=== PATIENT | female | born 1940 | race Caucasian/White ===

== ENCOUNTER → 2023-08-31 07:53 | Outpatient (REF) | payer OTHER, SELFPAY | LOC: RAD 07:53 | PROVIDERS: ATTENDING PHYSICIAN Internal Medicine Hematology & Oncology; FAMILY PHYSICIAN Family Medicine | DX: C67.1 Malignant neoplasm of dome of bladder (principal) | CPT/HCPCS: 71260; 74177; Q9967 ==

== ENCOUNTER → 2024-03-07 09:28 | Outpatient (REF) | payer OTHER, SELFPAY | LOC: RAD 09:28 | PROVIDERS: ATTENDING PHYSICIAN Internal Medicine Hematology & Oncology; FAMILY PHYSICIAN Family Medicine | DX: C67.1 Malignant neoplasm of dome of bladder (principal) | CPT/HCPCS: 71260; 74177; Q9967 ==

== ENCOUNTER → 2024-09-10 10:40 | Outpatient (REF) | payer OTHER, SELFPAY ==
[2024-09-10 12:19] LABS: ALT (SGPT) 17 U/L (0-35); AST (SGOT) 27 U/L (14-36); Albumin 4.1 g/dl (3.5-5.0); Alkaline Phosphatase 99 U/L (38-126); Blood Urea Nitrogen 19 mg/dl (7-17); Calcium 9.9 mg/dl (8.4-10.2); Carbon Dioxide 27 mmol/L (22-30); Chloride 104 mmol/L (98-107); Glucose 93 mg/dl (70-99); Potassium 5.4 mmol/L (3.5-5.1); Sodium 140 mmol/L (135-145); Total Bilirubin 0.7 mg/dl (0.2-1.3); Total Protein 6.6 g/dl (6.3-8.2); eGFR 49.86
== END ==
LOC: REG 10:40
PROVIDERS: ATTENDING PHYSICIAN Internal Medicine Hematology & Oncology; FAMILY PHYSICIAN Family Medicine
DX: C67.1 Malignant neoplasm of dome of bladder (principal)
CPT/HCPCS: 36415; 80053

== ENCOUNTER → 2024-09-11 10:18 | Outpatient (REF) | payer OTHER, SELFPAY | LOC: RAD 10:18 | PROVIDERS: ATTENDING PHYSICIAN Internal Medicine Hematology & Oncology; FAMILY PHYSICIAN Family Medicine | DX: C67.1 Malignant neoplasm of dome of bladder (principal) | CPT/HCPCS: 71260; 74177; Q9967 ==